=== PATIENT | male | born 1965 | race American Indian/Alaskan Native ===

== ENCOUNTER 2022-05-19 14:30 | Outpatient (CLI) | payer OTHER | END 2022-05-19 14:31 | disposition short-term general hospital (02) | LOC: EMS 14:30 | DX: R07.89 Other chest pain (principal); M25.561 Pain in right knee; V57.5XXA Driver of pick-up truck or van injured in collision with fixed or stationary object in traffic accident, initial encounter; Y92.413 State road as the place of occurrence of the external cause | CPT/HCPCS: A0425; A0429 ==